=== PATIENT | female | born 2000 | race Caucasian/White ===

== ENCOUNTER 2025-08-21 23:56 | Emergency (ER) | payer MEDICAID, SELFPAY ==
[2025-08-21 23:57] VITALS: BP 124/82; PULSE 80; RESP 18; TEMP 36.9; O2SAT 100
--- NOTE | 2025-08-22 00:17 | XR_ITS ---
Examination: CT abdomen and pelvis without contrast. Coronal 3-D reconstructions. Sagittal 2-D reconstructions. Date and time of exam:August 22, 2025, 0355 hrs. Indications: Right flank and right lower abdominal pain beginning 2 days ago CTDI: vol (mGy): 6.69 DLP: (mGycm): 334 Technique: Axial images of the abdomen have been obtained, 3 mm slice thickness Intravenous contrast material has not been administered. Low dose protocols were performed. One or more of the following dose reduction techniques were used; automated exposure control, adjustment of the mA and/or KV according to patient size, use of iterative reconstruction technique. Findings: No liver or splenic lesions No gallstones No pancreatic or adrenal mass 3 mm left renal calculus Minimal right hydronephrosis secondary to 3 mm distal right ureterovesical junction calculus No bowel obstruction Aorta normal size. Normal appendix No pelvic mass Impression: Minimal right hydronephrosis secondary to 3 mm distal right ureterovesical junction calculus
--- NOTE | 2025-08-22 00:18 | PD.EDRME ---
Rapid Medical Screening Exam RME Arrival date/time: 08/21/25 23:56 Chief Complaint: Abdominal Pain Time Seen by Provider: 08/22/25 00:00 Vital signs: Vital Signs Temperature 98.4 F 08/21/25 23:57 Pulse Rate 80 08/21/25 23:57 Respiratory Rate 18 08/21/25 23:57 Blood Pressure 124/82 08/21/25 23:57 Pulse Oximetry (%) 100 08/21/25 23:57 Oxygen Delivery Method Room Air 08/21/25 23:57 E Narrative: RLQ pain radiating to right flank with nausea/vomiting x2 days worsened tonight
[2025-08-22] MEDS: ONDANSETRON ODT 4 MG TABRAP PO (00:25)
[2025-08-22] MEDS: KETOROLAC INJ 30 MG/ML VIAL IM (00:25)
[2025-08-22 00:45] LABS: Basophils # (Auto) 0.1 Thou/mm3 (0.0-0.2); Basophils % (Auto) 1 % (0-2.5); Eosinophils # (Auto) 0.1 Thou/mm3 (0.0-0.5); Eosinophils % (Auto) 1 % (0-10); Hematocrit 39.6 % (36.0-46.0); Hemoglobin 12.7 g/dL (12.0-16.0); Immature Granulocytes Auto 0.07 Thou/mm3 (0.00-0.00); Lymphocytes # (Auto) 1.6 Thou/mm3 (1.0-4.8); Lymphocytes % (Auto) 10 % (10-50); Mean Corpuscular HGB Conc 32.1 g/dl (31.0-37.0); Mean Corpuscular Hemoglobin 28.5 pg (25.0-35.0); Mean Corpuscular Volume 89 fL (80-100); Monocytes # (Auto) 0.8 Thou/mm3 (0.0-0.8); Monocytes % (Auto) 5 % (0-12); Neutrophils # (Auto) 14.0 Thou/mm3 (1.8-7.7); Neutrophils % (Auto) 84 % (37-80); Nucleated Red Blood Cell # 0.00 Thou/mm3 (0.00-0.00); Nucleated Red Blood Cell % 0 /100 WBC (0); Platelet Count 263 Thou/mm3 (140-440); RDW Standard Deviation 43.2 fL (36.4-46.3); Red Blood Count 4.46 Miln/mm3 (4.00-5.20); White Blood Count 16.7 Thou/mm3 (3.6-11.0)
[2025-08-22 01:01] LABS: Alanine Aminotransferase 15 U/L (10-49); Albumin, Serum 4.8 gm/dL (3.5-5.0); Albumin/Globulin Ratio 1.9 (1.2-2.2); Alkaline Phosphatase 75 U/L (46-116); Amylase 80 U/L (30-118); Anion Gap 10 (7-16); Aspartate Amino Transferase 21 U/L (0-34); BUN/Creatinine Ratio 9 Ratio (12-20); Bilirubin,Total 0.2 mg/dL (0.3-1.2); Blood Urea Nitrogen 9 mg/dL (9-23); Calcium 9.6 mg/dL (8.3-10.6); Calcium (Corrected) 9.6 mg/dL (8.5-10.1); Carbon Dioxide 24.0 mMol/L (20.0-31.0); Chloride 110 mMol/L (98-107); Creatinine (Component) 1.0 mg/dL (0.6-1.3); Globulin 2.5 gm/dL (2.3-3.5); Glucose 124 mg/dL (74-106); Osmolality,Calculated 286 (275-295); Potassium 4.0 mMol/L (3.4-5.1); Sodium 144 mMol/L (136-145); Total Protein 7.3 gm/dL (5.7-8.2); eGFR > 60 See Note
[2025-08-22 02:23] VITALS: BP 110/67; PULSE 72; RESP 20; TEMP 36.8; O2SAT 99
[2025-08-22 02:29] VITALS: BMI 21.6
[2025-08-22 02:52] LABS: Collection Type, Urine Clean Catch
--- NOTE | 2025-08-22 02:52 | PD.EDABDPN ---
ED Abdominal Pain RME/HPI General Chief Complaint: Abdominal Pain Stated complaint: ABD PAIN Time seen by provider: 08/22/25 00:00 Arrival date/time: 08/21/25 23:56 RME / HPI RME / HPI narrative: RLQ pain radiating to right flank with nausea/vomiting x2 days worsened tonight DR. MAHAJAN MAIN ED EVALUATION: 25 y/o female presents with severe right flank pain that radiates to the RLQ, intermittent subjective fevers, urinary retention, and vomiting x 1 week, worse since 5 hours ago. Denies any history of abdominal surgeries. Denies any medical history. Related Data Previous Rx's ?Medication ?Instructions ?Recorded ibuprofen 600 mg tablet 600 mg PO Q6HR #30 tabs 11/27/19 hydrocodone 10 mg-acetaminophen 1 tab PO Q6H PRN pain #10 tabs 08/22/25 325 mg tablet ibuprofen 600 mg tablet 600 mg PO QID PRN pain #20 tabs 08/22/25 ondansetron 4 mg disintegrating 4 mg PO Q6H PRN nausea and 08/22/25 tablet vomiting #20 tabs tamsulosin 0.4 mg capsule (Flomax) 0.4 mg PO QDAY #7 caps 08/22/25 Allergies Allergy/AdvReac Type Severity Reaction Status Date / Time No Known Allergies Allergy Verified 08/21/25 23:59 Review of Systems Review of Systems Systems Reviewed: All systems reviewed, normal except as documented Past Medical History Social History SMOKING STATUS: Current some day smoker ED Exam Narrative Physical exam: Generally the patient is alert in moderate distress secondary to pain, heart regular rate and rhythm, lungs clear to auscultation equal bilaterally, abdomen soft bowel sounds present nondistended right lower lateral abdominal tenderness without rebound. Musculoskeletal exam shows patient have right-sided costovertebral angle tenderness. Skin is warm pale and dry. Neurologic exam no focal motor or sensory deficits cranial nerves II through XII grossly intact. Warner Coma Scale is 15. Course Quality Measures none Orders Category Date Time Status CT abdomen pelvis wo con Stat Exams 08/22/25 00:17 Taken Amylase Stat Lab 08/22/25 00:31 Completed CBC Stat Lab 08/22/25 00:31 Completed CMP [Comprehensive Metabolic Panel] Stat Lab 08/22/25 00:31 Completed Drug Screen,Urine Stat Lab 08/22/25 04:41 Ordered HCG Qualitative,Urine Stat Lab 08/22/25 02:47 Completed UA [Urinalysis] Stat Lab 08/22/25 02:47 Completed Ketorolac Inj [Toradol Inj] Med 08/22/25 00:17 Discontinued 30 mg IM X1 ONE Ketorolac Inj [Toradol Inj] Med 08/22/25 03:34 Discontinued 30 mg IVP X1 ONE Morphine* Inj Med 08/22/25 02:53 Discontinued 4 mg IVP X1 ONE Morphine* Inj Med 08/22/25 04:21 Discontinued 4 mg IVP X1 ONE Ondansetron Odt [Zofran Odt] Med 08/22/25 00:17 Discontinued 4 mg PO X1 ONE Vital Signs Vital signs: Vital Signs Temperature 98.4 F 08/21/25 23:57 Pulse Rate 80 08/21/25 23:57 Respiratory Rate 18 08/21/25 23:57 Blood Pressure 124/82 08/21/25 23:57 Pulse Oximetry (%) 100 08/21/25 23:57 Oxygen Delivery Method Room Air 08/21/25 23:57 Abdominal Pain MDM MDM Narrative MDM Narrative:: Scribe Attestation: I, Leonarda Massey, am scribing for and in the presence of Dr. Mahajan. Provider Notation: Although this document has been carefully reviewed, there may still be some phonetic and other typographical errors. These errors are purely grammatical due to imperfections in the software program and should not be construed in any way to compromise the substance of the patient's medical care during this visit. I interpreted all labs. Urine is not infected. is negative. CT scan done the abdomen and pelvis without contrast showed right ureteral vesicular 3 mm stone associated with mild right hydroureteronephrosis. Patient received Toradol 30 mg IV, morphine 4 mg IV x 2 and Zofran 4 mg IV. Patient is afebrile. White count is 16,000. Pain is controlled. A 3 mm stone at the ureterovesicular junction is well within limits of being able to be passed. Patient is to take Zofran and ibuprofen as well as hydrocodone and Flomax as prescribed. The urine is not infected. Follow-up with her doctor. Return to ER as needed or if condition worsens. Patient data External records reviewed:: [facility] previous records (No recent ED records available for review.) Clinical information provided by:: patient and parent (Mother) Social determinants that could affect healthcare access:: none Patient has the following chronic illnesses:: None reported How is presenting disease/condition affected by chronic disease/condition?: no chronic disease Evaluation data The following diagnostics were reviewed and interpreted by me:: lab results and radiology exam(s) Lab and/or radiology exams considered but not ordered:: None Interpretation Summary: RADIOLOGY Abdomen/Pelvis CT: Findings: The lung bases are clear. The liver, gallbladder, pancreas, spleen and adrenals are unremarkable on this noncontrast study. Nonobstructing left kidney stone. Right UVJ stone measuring 0.3 cm, the stone is not visible on the senior fund accountant image, mild right hydroureteronephrosis. The uterus and ovaries are within normal limits. No evidence of bowel obstruction. The appendix is within normal limits. There is no mesenteric or retroperitoneal adenopathy. The urinary bladder is nondistended, limited evaluation. There is no free fluid or free air. The osseous structures are unremarkable. Impression: Right UVJ stone associated with hydroureteronephrosis. Nonobstructing left nephrolithiasis. Medications / Prescriptions Medications or Prescriptions considered but not ordered:: None Medication administrations:: Medication Administration History Discontinued Medications Ketorolac Tromethamine (Ketorolac Inj 30 Mg/Ml Vial) 30 mg IM X1 ONE Stop: 08/22/25 00:18 Last Admin: 08/22/25 00:25 Dose: 30 mg Documented By: JUAN Ketorolac Tromethamine (Ketorolac Inj 30 Mg/Ml Vial) 30 mg IVP X1 ONE Stop: 08/22/25 03:35 Last Admin: 08/22/25 03:45 Dose: 30 mg Documented By: KIM Morphine Sulfate (Morphine Sulf Inj 4 Mg/Ml Vial) 4 mg IVP X1 ONE Stop: 08/22/25 02:54 Last Admin: 08/22/25 03:03 Dose: 4 mg Documented By: LISY Morphine Sulfate (Morphine Sulf Inj 4 Mg/Ml Vial) 4 mg IVP X1 ONE Stop: 08/22/25 04:22 Last Admin: 08/22/25 04:28 Dose: 4 mg Documented By: LISY Ondansetron HCl (Ondansetron Odt 4 Mg Tabrap) 4 mg PO X1 ONE; Protocol Stop: 08/22/25 00:18 Last Admin: 08/22/25 00:25 Dose: 4 mg Documented By: JUAN See above if any Consultations Consultation(s) initiated? (list below): No Diagnosis Differential diagnosis abdominal pain: abdominal pain, acute appendicitis, calculus of kidney, constipation, diverticulitis, endometriosis, gastroenteritis and small bowel obstruction Most likely diagnosis given after review of the tests above:: none Admission Indicated Admission indicated?: not indicated Explain why admission is indicated or not indicated:: Patient does not meet admission criteria Admission Request Was there a request for admission?: No Disposition Plan Disposition Plan: Discharge Discharge Attestation Discharge Attestation: The patient and all family members were given an opportunity to ask questions and understood the discharge instructions. Discharge instructions specifically effects, indications for sooner follow up or return to the emergency department, and the expected course of current diagnosis. Patient condition: Stable Discharge Plan Plan Patient Disposition: HOME (Self Care) Prescriptions/Referrals Prescriptions/Med Rec: New ondansetron 4 mg tablet,disintegrating 4 mg PO Q6H PRN (Reason: nausea and vomiting) Qty: 20 0RF ibuprofen 600 mg tablet 600 mg PO QID PRN (Reason: pain) Qty: 20 0RF tamsulosin [Flomax] 0.4 mg capsule 0.4 mg PO QDAY Qty: 7 0RF hydrocodone-acetaminophen 10-325 mg tablet 1 tab PO Q6H MDD 4 PRN (Reason: pain) Qty: 10 0RF No Action ibuprofen 600 mg tablet 600 mg PO Q6HR Qty: 30 0RF Referrals: Srinivasa Scherer MD [Primary Care Provider, Family Practice] - In 1 week Problem List Clinical Impression: Kidney stone Patient/Caregiver Discharge Instructions Education Materials: ED Kidney Stone w/ Colic Additional Instructions: Medications as prescribed. Follow-up with your doctor as needed. Print Language: Fijian Stand Alone Forms: [facility] Award Info., Patient Portal Info Letter
[2025-08-22 02:58] LABS: HCG Qualitative,Urine Negative
[2025-08-22] MEDS: MORPHINE SULF INJ 4 MG/ML VIAL IVP ×2 (03:03→04:28)
[2025-08-22 03:09] LABS: Bilirubin,Urine Negative (Negative); Blood,Urine Negative (Negative); Clarity,Urine Clear (Clear/Hazy); Color,Urine Yellow (Lt Yel-Yel); Glucose, Urine Negative (Negative); Ketones,Urine 2+ (Negative); Leukocyte Esterase,Urine Positive (Negative); Nitrite,Urine Negative (Negative); PH,Urine 6.5 (5.0-7.0); Protein,Urine 1+ (Neg - Trace); RBC,Urine 1 /hpf (0-3); Specific Gravity,Urine 1.039 (1.001-1.035); Squamous Epithelial Cell,Urine < 1 /hpf (0-5); Urobilinogen,Urine 2.0 mg/dL (0.0-1.0); WBC,Urine 1 /hpf (0-5)
[2025-08-22] MEDS: KETOROLAC INJ 30 MG/ML VIAL IVP (03:45)
[2025-08-22 04:17] VITALS: BP 108/64; PULSE 74; RESP 19; O2SAT 99
--- NOTE | 2025-08-22 05:19 | PRELIM_ITS ---
CT scan of the abdomen and pelvis without intravenous contrast (axial sections with sagittal and coronal reformats) August 22, 2025 0355 hours Clinical History: RLQ, right flank pain x2 days. Comparison: No prior study is available for comparison. Findings: The lung bases are clear. The liver, gallbladder, pancreas, spleen and adrenals are unremarkable on this noncontrast study. Nonobstructing left kidney stone. Right UVJ stone measuring 0.3 cm, the stone is not visible on the turntable operator image, mild right hydroureteronephrosis. The uterus and ovaries are within normal limits. No evidence of bowel obstruction. The appendix is within normal limits. There is no mesenteric or retroperitoneal adenopathy. The urinary bladder is nondistended, limited evaluation. There is no free fluid or free air. The osseous structures are unremarkable. Impression: Right UVJ stone associated with hydroureteronephrosis. Nonobstructing left nephrolithiasis. Report Electronically Signed By: Silver Oconnor 08/22/2025 5:18:58 AM [EST]
== END 2025-08-22 05:45 | disposition home or self-care (01) ==
PROVIDERS: Physician Assistant; Emergency Provider Emergency Medicine; PCP Family Medicine
DX: N13.2 Hydronephrosis with renal and ureteral calculous obstruction (principal); F17.290 Nicotine dependence, other tobacco product, uncomplicated
CPT/HCPCS: 36415; 74176; 80053; 80307; 81001; 81025; 82150; 85025; 96372; 96374; 96375; 99283; J1885; J2270; Q0162

== ENCOUNTER 2025-09-08 20:28 | Emergency (ER) | payer MEDICAID, SELFPAY ==
[2025-09-08 20:29] VITALS: BMI 22.3
[2025-09-08 21:12] VITALS: BP 126/72; PULSE 93; RESP 18; TEMP 36.8; O2SAT 99
--- NOTE | 2025-09-08 21:24 | XR_ITS ---
Examination: Retroperitoneal ultrasound, complete Technique: Multiple high resolution grayscale images of the retroperitoneum obtained, including kidneys and bladder. Exam date and time: September 08, 2025, 10:50 p.m. INDICATIONS: History kidney stones and flank pain months FINDINGS: Right kidney 10.6 cm renal cortex 2.0 cm Left kidney 9.2 cm renal cortex 1.8 cm 8 mm right renal calculus, no hydronephrosis No bladder mass or bladder calculi IMPRESSION: 8 mm right renal calculus, no hydronephrosis
--- NOTE | 2025-09-08 21:29 | EDNOTE_ITS ---
ED Female Urogenital RME/HPI General Chief complaint: Abdominal Pain Stated complaint: LOWER ABD PAIN, SENT BY PCP FOR US Time Seen by Provider: 09/08/25 21:24 Arrival date/time: 09/08/25 20:28 25F with history of recent kidney stone diagnosis presents to ED with for US to monitor kidney stones. Patient has been on Flomax and unspecified ABX. Patient denies dysuria. Some ab pain and N/V earlier, but not currently. Patient denies vaginal bleeding. Limitations: no limitations Related Data Previous Rx's ?Medication ?Instructions ?Recorded ibuprofen 600 mg tablet 600 mg PO Q6HR #30 tabs /08/18 hydrocodone 10 mg-acetaminophen 1 tab PO Q6H PRN pain #10 tabs 08/22/25 325 mg tablet ibuprofen 600 mg tablet 600 mg PO QID PRN pain #20 t abs 08/22/25 ondansetron 4 mg disintegrating 4 mg PO Q6H PRN nausea and 08/22/25 tablet vomiting #20 tabs tamsulosin 0.4 mg capsule (Flomax) 0.4 mg PO QDAY #7 c aps 08/22/25 Allergies Allergy/AdvReac Type Severity Reaction Status Date / Time No Known Allergies Allergy Verified 09/08/25 20:28 Review of Systems Review of Systems Systems Reviewed: All systems reviewed, normal except as documented Gastrointestinal Gastrointestinal: Reports as per HPI, Reports abdominal pain, Reports nausea and Reports vomiting Past Medical History Past Medical History CARDIAC: Negative Congestive Heart Failure RESPIRATORY: Negative Chronic Obstructive Pulmonary Disease (COPD) GENITOURINARY: Negative Renal Disease ENDOCRINE: Negative Diabetes Mellitus Type 1 or Diabetes Mellitus Type 2 Social History SMOKING STATUS: Current some day smoker ED Exam General Limitations: Present no limitations General appearance: Present alert and in no apparent distress Head Head exam: Present atraumatic Neck Neck exam: Present normal inspection, full ROM and trachea midline Chest Chest inspection: Present normal inspection and symmetric chest wall rise Neurological Exam Neurological exam: Present alert and oriented X3 Psychiatric Psychiatric exam: Present normal affect and normal mood Skin Skin exam: Present warm, dry, intact and normal color Course Quality Measures none Orders Category Date Time Status US retroperitoneal comp Stat Exams 09/08/25 21:24 Completed Drug Screen,Urine Stat Lab 09/08/25 22:08 Completed HCG Qualitative,Urine Stat Lab 09/08/25 22:08 Completed Urinalysis, C/S if Indicated Stat Lab 09/08/25 22:08 Completed Vital Signs Vital signs: Vital Signs Temperature 98.2 F 09/08/25 21:12 Pulse Rate 93 09/08/25 21:12 Respiratory Rate 18 09/08/25 21:12 Blood Pressure 126/72 09/08/25 21:12 Pulse Oximetry (%) 99 09/08/25 21:12 Oxygen Delivery Method Room Air 09/08/25 21:12 O2 at 99% on RA and WNLs Urogenital - Female MDM Narrative MDM Narrative:: 25F with history of recent kidney stone diagnosis presents to ED with for US to monitor kidney stones. Patient has been on Flomax and unspecified ABX. Patient denies dysuria. Some ab pain and N/V earlier, but not currently. Patient denies vaginal bleeding. Physical exam reveals well-appearing female. Patient is afebrile, calm, and alert. US possible 8 mm stone in R kidney. UA some blood, but no signs of infection. Cellophane Bath Mixer given. Patient data External records reviewed:: [facility] previous records Clinical information provided by:: patient Social determinants that could affect healthcare access:: none Patient has the following chronic illnesses:: none How is presenting disease/condition affected by chronic disease/condition?: no chronic disease Evaluation data The following diagnostics were reviewed and interpreted by me:: lab results and radiology exam(s) Lab and/or radiology exams considered but not ordered:: ordered Interpretation Summary: above Medications / Prescriptions Medications or Prescriptions considered but not ordered:: not ordered Medication administrations:: n/a Consultations Consultation(s) initiated? (list below): No Diagnosis Urogenital Female Differential Diagnosis: urinary tract infection, bacterial vaginosis, trichomoniasis, cervicitis, ovarian cyst, vaginitis, ruptured ovarian cyst, cyst of Bartholin's gland, cystitis, dysmenorrhea and other (kidney stones) Most likely diagnosis given after review of the tests above:: kidney stone Admission Indicated Admission indicated?: not indicated Admission Request Was there a request for admission?: No Disposition Plan Disposition Plan: Discharge Discharge Attestation Discharge Attestation: The patient and all family members were given an opportunity to ask questions and understood the discharge instructions. Discharge instructions specifically effects, indications for sooner follow up or return to the emergency department, and the expected course of current diagnosis. Patient condition: Stable Discharge Plan Plan Patient Disposition: HOME (Self Care) Discharge Disposition comment: Stable Prescriptions/Referrals Prescriptions/Med Rec: No Action ibuprofen 600 mg tablet 600 mg PO Q6HR Qty: 30 0RF ondansetron 4 mg tablet,disintegrating 4 mg PO Q6H PRN (Reason: nausea and vomiting) Qty: 20 0RF ibuprofen 600 mg tablet 600 mg PO QID PRN (Reason: pain) Qty: 20 0RF tamsulosin [Flomax] 0.4 mg capsule 0.4 mg PO QDAY Qty: 7 0RF hydrocodone-acetaminophen 10-325 mg tablet 1 tab PO Q6H MDD 4 PRN (Reason: pain) Qty: 10 0RF Referrals: No Primary/Family,Physician [Primary Care Provider] - In 1 week Problem List Clinical Impression: Kidney stone Patient/Caregiver Discharge Instructions Education Materials: Understanding Kidney Stones Additional Instructions: Please follow-up with PCP within 24-48 hours and return immediately if symptoms worsen. If problem perists, see urologist. Keep in mind: US is not as accurate as CT, but it has no radiation. Print Language: Yakut Stand Alone Forms: Patient Portal Info Letter PA/CONTENT DEVELOPMENT SPECIALIST Supervising Physician PA/CONTENT DEVELOPMENT SPECIALIST Supervising Physician: Dr. Momin
[2025-09-08 22:25] LABS: Collection Type, Urine Clean Catch
[2025-09-08 22:31] LABS: Bacteria,Urine Rare; Bilirubin,Urine Negative (Negative); Blood,Urine Negative (Negative); Clarity,Urine Clear (Clear/Hazy); Color,Urine Yellow (Lt Yel-Yel); Culture Indicated,Urine Not Indicated; Glucose, Urine Negative (Negative); Hyaline Casts,Urine < 1 /hpf (0-1); Ketones,Urine Negative (Negative); Leukocyte Esterase,Urine Negative (Negative); Nitrite,Urine Negative (Negative); PH,Urine 6.5 (5.0-7.0); Protein,Urine Trace (Neg - Trace); RBC,Urine 7 /hpf (0-3); Specific Gravity,Urine 1.033 (1.001-1.035); Squamous Epithelial Cell,Urine 4 /hpf (0-5); Urobilinogen,Urine 4.0 mg/dL (0.0-1.0); WBC,Urine 1 /hpf (0-5)
[2025-09-08 22:33] LABS: HCG Qualitative,Urine Negative
[2025-09-08 23:00] LABS: Amphetamine/Methamp Scrn,U Negative (Negative); Barbiturate Screen,Urine Negative (Negative); Benzodiazepines Screen,Urine Negative (Negative); Benzoylecgonine Screen, Ur Negative (Negative); Fentanyl Screen,Urine Negative (Negative); Opiate Screen,Urine Negative (Negative); THC Screen,Urine Positive (Negative)
== END 2025-09-09 00:14 | disposition home or self-care (01) ==
PROVIDERS: Physician Assistant; Emergency Provider Emergency Medicine
DX: N20.0 Calculus of kidney (principal)
CPT/HCPCS: 76770; 80307; 81001; 81025; 99283